=== PATIENT | male | born 1960 | race Caucasian/White ===

== ENCOUNTER 2016-09-06 18:15 | Emergency (ER) | payer MEDICARE, OTHER ==
[~2016-09-06] VITALS: Ht 180.3 cm; Wt 65.9 kg
[2016-09-06 18:34] VITALS: BP 117/74; PULSE 78; RESP 16; O2SAT 95
--- NOTE | 2016-09-06 21:54 | ED.REPORT ---
HPI-General Illness Date of Service Sep 06, 2016 ED Provider: Gerardo Saucedo MD This is a homeless 56 year old male with a history of chronic pancreatitis, hypothyroidism, DVT, and CHF presenting to the emergency department due to chronic bilateral leg pain. Patient states DVT was found on ultrasound several weeks ago. Also reports abdominal pain due to chronic pancreatitis. Patient states he moved from a nursing in [place] three weeks ago and has since been off of his medications. NICOL report indicates patient has several ER visits since then. Including visits at , [facility], and [facility] with similar presentation in the last four days. Nursing Notes Stated Complaint: DVTS LEGS, BONE DISEASE Chief Complaint: General Complaint Nursing Notes Reviewed: Yes Allergies: Coded Allergies: No Known Allergies (Unverified , 09/07/16) General Time Seen by MD: 21:50 Chief Complaint Other Hx Obtained From: Patient Arrived By: Walk-in Sudden in Onset?: Yes Onset Occurred: Just prior to arrival Symptom Duration: Since onset Severity: Current: Moderate Pertinent Negative: Pt denies other symptoms Recent Healthcare: No recent doctor visit, No recent hospitalization Similar Sx Previous: No Past Medical History Past Medical History Hypothyroidism Hx DVT CHF Chronic pancreatitis Social History Other Social History: Homeless Ambulatory Status Walker Review of Systems Full Review of Systems Constitutional: Denies: Chills, Fever Respiratory: Denies: Dyspnea on exertion Cardiovascular: Denies: Chest pain GI: Reports: Abdominal pain, Denies: Nausea, Vomiting Musculoskeletal: Reports: Extremity pain, Extremity swelling Neurologic: Denies: Headache, Lightheaded, Numbness Complete sys rev & neg: except as marked. Physical Exam Vital Signs Vital Signs Date Time Temp Pulse Resp B/P Pulse Ox O2 Delivery O2 Flow Rate FiO2 09/06/16 18:34 36.8 78 16 117/74 95 Room Air Initial VS: Reviewed, Vital signs normal Head / Eyes: Atraumatic, Normocephalic, PERRL ENT: Mucous membranes moist, Conjunctiva normal, No scleral icterus Neck: Supple, Non-tender, Full range of motion Respiratory: Breath sounds normal, Clear to auscultation, No respiratory distress Extremities: Vascular intact, Neuro intact Skin: Warm, Dry, No cyanosis Neurologic: Alert, Oriented, Nonfocal Psychiatric: Mood/affect normal, Normal thought content General/Constitutional: Awake, Alert Cooperative, conversant, somewhat manipulative behavior Cardiovascular: Heart rate NL, Regular rhythm, Heart sounds NL, No murmurs Lower Ext Edema: Positive: Bilateral 2+, Pitting Up to knees, chronic with chronic skin changes Re-Eval/Medical Decision Med Decision/Clinical Course 56-year-old male who has been in dozens of emergency room up the eye 09/28. He has had 3 ER visits in [place] in the last 4 days. He now presents here with complaints of swollen legs. He states that he previously had a DVT diagnosed but has not taken any medicines or received any follow-up for that. He never stays in an area for long enough to get a primary doctor. He was also completely noncompliant on his blood thinner. The NICOL report states that he has trouble with veracity and has been labeled as a malingerer. He repeatedly comes up with bizarre and serious symptoms and previous diagnoses to include cancers. The bottom line is that he has no medical problems that have not been previously evaluated. And he has no new worse serious symptoms. Counseled Regarding: Diagnosis, Lab results, Need for follow-up, When/why to return to ED Discharge & Departure Primary Impression: Chronic edema Additional Impressions: Chronic pancreatitis Pancreatitis type: unspecified pancreatitis type Qualified Code: K86.1 - Other chronic pancreatitis Homelessness Disposition: Home Discharge Condition All VS Reviewed: Yes Condition: Stable Additional Instructions: You have no new or serious symptoms at this time. Your edema and pancreatitis seems stable. You need to stay in one place and establish care for your medical problems. Your noncompliance and constant wandering from one city and 1 emergency room to the other patient very difficult for you to get good medical care. I see no reason at this time to repeat all the studies that have previously been done. If you are going to stay in this area you need to contact the residency clinic at [facility] for the next available appointment. [facility] contact [facility] [employer] for housing availability. Referrals: [facility] Res[facility] Scribe Attestation Portions of this note were transcribed by Oumar Martinez. I, Dr. Saucedo personally performed the history, physical exam and medical decision-making; I reviewed and confirmed the accuracy of the information in the transcribed note. Signed by: aarti Guillen. 09/06/2016, 06:00. Gerardo Saucedo MD Sep 06, 2016 21:54 OUMAR MARTINEZ Sep 06, 2016 22:02
== END 2016-09-06 22:54 | disposition home or self-care (01) ==
LOC: SED 19:49
DX: R60.0 Localized edema (principal); K86.1 Other chronic pancreatitis; M79.605 Pain in left leg; I50.9 Heart failure, unspecified; E03.9 Hypothyroidism, unspecified; Z59.0 Homelessness; Z91.14 Patient's other noncompliance with medication regimen

== ENCOUNTER 2016-09-06 23:39 | Emergency (ER) | payer MEDICARE, OTHER ==
[~2016-09-06] VITALS: Ht 180.3 cm; Wt 73.6 kg
[2016-09-07 00:15] VITALS: BP 122/77; PULSE 97; RESP 18; O2SAT 99
== END 2016-09-07 01:43 | disposition left against medical advice (07) ==
LOC: SED 23:39
DX: R52 Pain, unspecified (principal); Z53.21 Procedure and treatment not carried out due to patient leaving prior to being seen by health care provider

== ENCOUNTER 2016-09-07 07:01 | Emergency (ER) | payer MEDICARE, OTHER ==
[2016-09-07 07:08] VITALS: BP 116/65; PULSE 70; RESP 18; O2SAT 99
[2016-09-07 07:30] VITALS: BP 116/65; PULSE 70; RESP 18; O2SAT 99
--- NOTE | 2016-09-07 08:26 | ED.REPORT ---
HPI-General Illness Date of Service Sep 07, 2016 ED Provider: Yefri Morin MD Patient is a 56 year old male who presents to the ED today complaining of multiple joint pain and broken bones. He asks for a levothyroxine prescription and a consult with a director of social services. When asked if he wanted to have thyroid testing, he began standing saying "he had never been treated so poorly by having to sit in a chair", and intends to leave the department. Patient was seen here in the department yesterday for similar. Nursing Notes Stated Complaint: POSSIBLE DVTS Chief Complaint: General Complaint Nursing Notes Reviewed: Yes Allergies: Coded Allergies: No Known Allergies (Unverified , 09/07/16) General Time Seen by MD: 07:42 Chief Complaint Multip medical complaints Hx Obtained From: Patient Arrived By: Walk-in Sudden in Onset?: No Onset Occurred: Onset unknown Recent Healthcare: Recent doctor visit Similar Sx Previous: Yes Past Medical History Past Medical History Hypothyroidism Hx DVT CHF Chronic pancreatitis Smoking History Unknown if Ever Smoker Social History Other Social History: Homeless Ambulatory Status Walker Review of Systems ROS is limited to due to patient being uncooperative. Full Review of Systems Musculoskeletal: Reports: Extremity pain, Extremity swelling, Joint pain, Joint swelling Complete sys rev & neg: except as marked. Physical Exam Vital Signs Vital Signs Date Time Temp Pulse Resp B/P Pulse Ox O2 Delivery O2 Flow Rate FiO2 09/07/16 07:30 36.3 70 18 116/65 99 09/07/16 07:08 36.3 70 18 116/65 99 Room Air Initial VS: Reviewed General/Constitutional: Awake, Alert Head / Eyes: Normocephalic, PERRL, EOMI Neck: Supple Upper Extremities Upper Extremity / MS: Full range of motion Lower Extremity / Pelvis / MS: Full range of motion Neurologic: Oriented X3, Speech NL, No motor deficits, No sensory deficits Psychiatric: Affect NL, Mood NL Re-Eval/Medical Decision Med Decision/Clinical Course 56-year-old homeless male presenting complaining of hypothyroidism. He was requesting refill for his levothyroxine. He had no documentation of previous prescriptions. Advised that we would need to check labs for this given he has no documentation of previous prescriptions and has not been seen by any primary doctor in the area as far as we can tell. He reportedly has been to 80 different ERs up and down the [facility] recently. Patient refused to give labs and decided to leave without accepting further care. Source of Hx: Old records Discharge & Departure Primary Impression: Hypothyroidism Discharge Condition All VS Reviewed: Yes Condition: Stable Referrals: [facility] (PCP) Talya Attestation Portions of this note were transcribed by Komal Nieto and Leonardo Austin. I, Dr. Morin personally performed the history, physical exam and medical decision-making; I reviewed and confirmed the accuracy of the information in the transcribed note. Signed by: Komal Nieto and Talya Nobles, and [id number]. Yefri Morin MD Sep 07, 2016 08:26 Rocio Nieto Sep 07, 2016 08:56 LEONARDO AUSTIN Sep 07, 2016 10:22
== END 2016-09-07 09:12 | disposition home or self-care (01) ==
LOC: SED 07:54
DX: E03.9 Hypothyroidism, unspecified (principal); M25.50 Pain in unspecified joint; I50.9 Heart failure, unspecified; Z59.0 Homelessness